=== PATIENT | female | born 1980 | race Caucasian/White ===

== ENCOUNTER 2017-07-22 05:45 | Emergency (ER) | payer MEDICAID ==
[2017-07-22] MEDS: ACETAMINOPHEN 500 MG TAB PO (07:09)
[2017-07-22] MEDS: IBUPROFEN 600 MG TAB PO (07:09)
== END 2017-07-22 08:06 | disposition home or self-care (01) ==
LOC: FTE 05:45
DX: R05 Cough (principal)
CPT/HCPCS: 71010; 71045; 99283-25